=== PATIENT | female | born 2000 | race Two or more races ===

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

== ENCOUNTER 2024-10-27 22:26 | Inpatient (IN) | payer OTHER ==
[2024-10-27] MEDS ORDERED: Nalbuphine 10 MG/1 ML Vial IVPUSH PRN (23:11)
[2024-10-27] MEDS ORDERED: Lidocaine 1% 50 ML MDV INJECT PRN (23:11)
[2024-10-27] MEDS ORDERED: Ondansetron 4 MG/2 ML SDV IVPUSH PRN (23:11)
[2024-10-27] MEDS ORDERED: Sodium Chloride 0.9% 10 ML Syringe FLUSH PRN (23:11)
[2024-10-27] MEDS ORDERED: Oxytocin/0.9 % Sodium Chloride 30 UNIT/500 ML BAG IV SCH (23:15)
[2024-10-27 23:30] LABS: BASOPHILS PERCENT AUTO 0.1 % (0.0-1.0); EOSINOPHILS ABSOLUTE AUTO 0.1 K/mm3 (0.0-0.4); EOSINOPHILS PERCENT AUTO 0.9 % (0.0-6.0); HEMATOCRIT 33.5 % (37.0-47.0); HEMOGLOBIN 11.4 gm/dl (12.0-16.0); IMMATURE GRAN ABSOLUTE AUTO 0.07 K/mm3 (0.00-0.05); IMMATURE GRAN PERCENT AUTO 0.5 % (0.0-0.4); LYMPHOCYTES PERCENT AUTO 20.7 % (24.0-44.0); MEAN CORPUSCULAR HEMOGLOBIN 30.5 pg (28.0-32.0); MEAN CORPUSCULAR VOLUME 89.6 fl (83.0-99.0); MEAN PLATELET VOLUME 9.7 fl (9.4-12.3); MONOCYTES ABSOLUTE AUTO 0.8 K/mm3 (0.0-0.8); MONOCYTES PERCENT AUTO 5.7 % (0.0-8.0); NEUTROPHILS ABSOLUTE AUTO 10.4 K/mm3 (1.8-7.7); NEUTROPHILS PERCENT AUTO 72.1 % (41.0-71.0); PLATELET COUNT,PLT 258 K/mm3 (150-400); RED BLOOD CELL COUNT 3.74 M/mm3 (4.10-5.30); WHITE BLOOD CELL COUNT,WBC 14.41 K/mm3 (3.9-11.3)
[2024-10-28] MEDS: Lactated Ringers 1,000 ML IV SCH (02:15)
[2024-10-28] MEDS ORDERED: diphenhydrAMINE 50 MG/ML SDV IVPUSH PRN (02:53)
[2024-10-28] MEDS ORDERED: ePHEDrine 50 MG/ML SDV IVPUSH PRN (02:53)
[2024-10-28] MEDS: Ropivacaine 200 MG in Premix Bag 1 BAG EPIDUR PRN (03:04)
[2024-10-28] MEDS: Oxytocin/0.9 % Sodium Chloride 30 UNIT/500 ML BAG IV SCH (03:19)
[2024-10-28] MEDS ORDERED: Bupivacaine 0.25% 10 ML SDV ONE (07:00)
[2024-10-28] MEDS: Sodium Chloride 0.9% 10 ML Syringe FLUSH SCH (09:40)
[2024-10-28] MEDS ORDERED: Docusate Sodium 100 MG Cap PO PRN (13:10)
[2024-10-28] MEDS: Acetaminophen 325 MG Tab PO PRN (14:23)
[2024-10-28] MEDS: Ibuprofen 600 MG Tab PO SCH (14:27)
[2024-10-28] MEDS: Benzocaine/Menthol 20%-0.5% Spray 78 GM Cannister TOP PRN (14:49)
[2024-10-28] MEDS: Witch Hazel Medicated Pads 40/Jar TOP PRN (14:49)
== END 2024-10-29 14:20 | disposition home or self-care (01) | DRG 807 ==
LOC: JD.OBCHECK 22:26 → JD.OB 22:30 → JD.OBCHECK 23:11 → JD.OB 23:20 → OBSVTOIN 10-28 12:53 → JD.OB 10-28 12:54
PROVIDERS: ADMIT Obstetrics & Gynecology; ATTEND Obstetrics & Gynecology
PROC: 10D07Z6 Extraction of Products of Conception, Vacuum, Via Natural or Artificial Opening (ICD-10-PCS; principal; 2024-10-28)
PROC: 0KQM0ZZ Repair Perineum Muscle, Open Approach (ICD-10-PCS; 2024-10-28)
PROC: 3E0R3BZ Introduction of Anesthetic Agent into Spinal Canal, Percutaneous Approach (ICD-10-PCS; 2024-10-28)
PROC: 00HU33Z Insertion of Infusion Device into Spinal Canal, Percutaneous Approach (ICD-10-PCS; 2024-10-28)
PROC: 4A1HXCZ Monitoring of Products of Conception, Cardiac Rate, External Approach (ICD-10-PCS; 2024-10-28)
DX: O99.02 Anemia complicating childbirth (principal); Z37.0 Single live birth; Z3A.39 39 weeks gestation of pregnancy; O75.81 Maternal exhaustion complicating labor and delivery; O70.1 Second degree perineal laceration during delivery
CPT/HCPCS: 36415; 51701; 51702; 59025; 59409; 84112; 85025; 86592; 86850; 86900; 86901; A9270-GY; J0665; J2795; J7120; J7999